=== PATIENT | female | born 1950 | race Two or more races ===

== ENCOUNTER 2025-05-09 22:15 | Inpatient (IN) | payer MEDICARE, OTHER ==
[~2025-05-09] VITALS: Ht 157.5 cm; Wt 71.7 kg
[2025-05-09] MEDS ORDERED: RIFA300C4 PO (22:59)
[2025-05-09] MEDS ORDERED: BISA10SU95 RC (22:59)
[2025-05-09] MEDS ORDERED: LOSA100T31 PO (22:59)
[2025-05-09] MEDS ORDERED: POLY250017 PO (22:59)
[2025-05-09] MEDS ORDERED: CALC500T88 PO (22:59)
[2025-05-09] MEDS ORDERED: LEVO75TA7 PO (22:59)
[2025-05-09] MEDS ORDERED: METF-440 PO (22:59)
[2025-05-09] MEDS ORDERED: CHOL200074 PO (22:59)
[2025-05-09] MEDS ORDERED: OLAN2.5T3 PO (22:59)
[2025-05-09] MEDS ORDERED: AMLO-212 PO (22:59)
[2025-05-09] MEDS ORDERED: FERR-56 PO (22:59)
[2025-05-09] MEDS ORDERED: SENN-129 PO (22:59)
[2025-05-09] MEDS ORDERED: DIVA125C5 PO (22:59)
[2025-05-09] MEDS ORDERED: BIMA2.5D5 EACHEYE (22:59)
[2025-05-09] MEDS ORDERED: ATOR20TA PO (22:59)
[2025-05-09 23:58] VITALS: BP 144/78
[2025-05-10] MEDS ORDERED: MAGNESIUM HYDROXIDE 30 ML LIQUID UDC PO PRN (01:45)
[2025-05-10] MEDS ORDERED: ZOLPIDEM 5 MG TABLET PO PRN (01:45)
[2025-05-10 08:19] VITALS: BP 150/63; TEMP 98.2; O2SAT 100
[2025-05-10] MEDS ORDERED: BISACODYL 10 MG SUPP.RECT RC PRN (11:45)
[2025-05-10 15:51] VITALS: BP 154/97; TEMP 98; O2SAT 96
[2025-05-10] MEDS: METFORMIN HCL 500 MG TABLET PO SCH (17:38)
[2025-05-10] MEDS: OLANZAPINE 2.5 MG TABLET PO SCH (17:39)
[2025-05-10] MEDS: LIDOCAINE 5% PATCH TD SCH (17:41)
[2025-05-10] MEDS: ACETAMINOPHEN 325 MG TABLET PO PRN (17:43)
[2025-05-10 20:06] VITALS: BP 148/72; TEMP 97.9; O2SAT 98
[2025-05-10] MEDS: DIVALPROEX SPRINKLE 125 MG CAP.SPRINK PO SCH (20:27)
[2025-05-10] MEDS: ATORVASTATIN 20 MG TABLET PO SCH (20:27)
[2025-05-10] MEDS: SENNOSIDES/DOCUSATE SODIUM TABLET PO SCH (20:27)
[2025-05-10] MEDS: LATANOPROST OPHT DROP 2.5 ML BOTTLE EACHEYE SCH (20:27)
[2025-05-10] MEDS: LORAZEPAM 1 MG TABLET PO PRN (20:33)
[2025-05-10] MEDS ORDERED: BIMATOPROST 0.01% OPHT DROP 2.5 ML BOTTLE EACHEYE SCH (21:00)
[2025-05-11] MEDS: LEVOTHYROXINE SODIUM 75 MCG TABLET PO SCH (06:01)
[2025-05-11 08:08] VITALS: BP 155/70; TEMP 97.8; O2SAT 98
[2025-05-11] MEDS: CHOLECALCIFEROL 1,000 UNIT TABLET PO SCH (08:37)
[2025-05-11] MEDS: LOSARTAN POTASSIUM 50 MG TABLET PO SCH (08:38)
[2025-05-11] MEDS: FERROUS SULFATE 325 MG TABEC PO SCH (08:39)
[2025-05-11] MEDS: AMLODIPINE 5 MG TABLET PO SCH (08:40)
[2025-05-11] MEDS: MIRALAX 17 GM POWD.PACK PO SCH (08:42)
[2025-05-11] MEDS: CALCIUM CARBONATE 500 MG TABLET PO SCH (08:43)
[2025-05-11] MEDS ORDERED: MIRALAX 17 GM POWD.PACK PO SCH (09:00)
[2025-05-11] MEDS ORDERED: OLANZAPINE 10 MG VIAL IM PRN (09:30)
[2025-05-11 15:16] VITALS: BP 110/53; TEMP 97.8; O2SAT 96
[2025-05-11 19:35] VITALS: BP 148/71; TEMP 97.9; O2SAT 97
[2025-05-11] MEDS: ZOLPIDEM 5 MG TABLET PO PRN (22:09)
[2025-05-12] MEDS: METHYL SALICYLATE/MENTHOL CREAM 28 GM TUBE TOP PRN (06:57)
[2025-05-12 08:23] VITALS: BP 154/82; TEMP 97.8; O2SAT 96
[2025-05-12 15:14] VITALS: BP 132/55; TEMP 98; O2SAT 99
[2025-05-12 19:57] VITALS: BP 150/62; TEMP 97.9; O2SAT 98
[2025-05-13 08:20] VITALS: BP 161/97; TEMP 98; O2SAT 99
[2025-05-13 16:33] VITALS: BP 146/86; TEMP 98; O2SAT 99
[2025-05-13 20:00] VITALS: BP 133/70; TEMP 98.3; O2SAT 96
[2025-05-14 08:18] VITALS: BP 151/58; TEMP 98; O2SAT 99
[2025-05-14] MEDS ORDERED: OLANZAPINE 2.5 MG TABLET PO SCH (09:00)
[2025-05-14] MEDS: OLANZAPINE 5 MG TABLET PO SCH (09:13)
[2025-05-14] MEDS: METOPROLOL TARTRATE 25 MG TABLET PO SCH (15:32)
[2025-05-14 16:23] VITALS: BP 127/61; TEMP 98; O2SAT 99
[2025-05-14 20:00] VITALS: BP 116/53; TEMP 98.2; O2SAT 95
[2025-05-15 08:15] LABS: PLATELET COUNT (AUTO) 238 K/uL (179-408); RED BLOOD CELL COUNT(AUTO) 3.64 MIL/uL (3.63-4.92); RED CELL DISTRIBUTION WIDTH 14.1 % (12.3-17.7); WHITE BLOOD COUNT (AUTO) 8.7 K/uL (3.8-11.8)
[2025-05-15 08:20] VITALS: BP 143/71; TEMP 98; O2SAT 99
[2025-05-15 08:33] LABS: ASPARTATE AMINOTRANSFERASE 8 U/L (15-37); TOTAL PROTEIN, SERUM 6.4 g/dL (6.4-8.2)
[2025-05-15] MEDS: RIFAMPIN 300 MG CAPSULE PO SCH (08:58)
[2025-05-15 16:55] VITALS: BP 144/61; TEMP 98; O2SAT 99
[2025-05-15 20:00] VITALS: BP 140/65; TEMP 97.7; O2SAT 97
[2025-05-16 08:00] VITALS: BP 177/77; TEMP 97.6; O2SAT 98
[2025-05-16] MEDS ORDERED: OLANZAPINE 5 MG TABLET PO SCH (09:00)
[2025-05-16] MEDS: DIVALPROEX SPRINKLE 125 MG CAP.SPRINK PO SCH (09:41)
[2025-05-16] MEDS: OLANZAPINE 2.5 MG TABLET PO SCH ×2 (09:41→21:03)
[2025-05-16 16:00] VITALS: BP 106/37; TEMP 98.2; O2SAT 95
[2025-05-16 20:24] VITALS: BP 116/64; TEMP 98.1; O2SAT 96
[2025-05-17 07:51] VITALS: BP 111/51; TEMP 98; O2SAT 99
[2025-05-17 15:15] VITALS: BP 121/70; TEMP 98.2; O2SAT 98
[2025-05-17 20:01] VITALS: BP 142/64; TEMP 98.1; O2SAT 98
[2025-05-17] MEDS: OLANZAPINE 5 MG TABLET PO SCH (20:21)
[2025-05-17] MEDS ORDERED: OLANZAPINE 2.5 MG TABLET PO SCH (21:00)
[2025-05-18 08:05] VITALS: BP 164/76; TEMP 98.2; O2SAT 98
[2025-05-18 15:20] VITALS: BP 151/68; TEMP 98; O2SAT 98
[2025-05-18 20:00] VITALS: BP 142/66; TEMP 98; O2SAT 97
[2025-05-19 07:51] VITALS: BP 134/50; TEMP 97.8; O2SAT 95
[2025-05-19 16:31] VITALS: BP 173/63; TEMP 98.4; O2SAT 96
[2025-05-19 19:53] VITALS: BP 120/51; TEMP 98.3; O2SAT 94
[2025-05-20] MEDS: RIFAMPIN 300 MG CAPSULE PO SCH (08:44)
[2025-05-20 09:22] VITALS: BP 158/68; TEMP 98.4; O2SAT 96
[2025-05-20 16:32] VITALS: BP 149/65; TEMP 98.3; O2SAT 94
[2025-05-20 19:57] VITALS: BP 146/66; TEMP 98.2; O2SAT 98
[2025-05-21] MEDS: MAG HYDROX/AL HYDROX/SIMETH 30 ML LIQUID UDC PO PRN (04:02)
[2025-05-21 08:08] VITALS: BP 182/58; TEMP 98.4; O2SAT 96
[2025-05-21 16:39] VITALS: BP 160/64; TEMP 98.3; O2SAT 94
[2025-05-21 19:51] VITALS: BP 128/53; TEMP 98.2; O2SAT 95
[2025-05-21] MEDS: ATORVASTATIN 10 MG TABLET PO SCH (20:20)
[2025-05-22 08:12] LABS: PLATELET COUNT (AUTO) 218 K/uL (179-408); RED BLOOD CELL COUNT(AUTO) 3.52 MIL/uL (3.63-4.92); RED CELL DISTRIBUTION WIDTH 13.7 % (12.3-17.7); WHITE BLOOD COUNT (AUTO) 8.2 K/uL (3.8-11.8)
[2025-05-22 08:55] VITALS: BP 133/67; TEMP 98.4; O2SAT 96
[2025-05-22 09:04] LABS: ASPARTATE AMINOTRANSFERASE 7 U/L (15-37); CREATININE 1.3 mg/dL (0.6-1.3); SODIUM SERUM 141 mmol/L (136-145); TOTAL PROTEIN, SERUM 5.9 g/dL (6.4-8.2); UREA NITROGEN, BLOOD 41 mg/dL (7-18)
[2025-05-22 16:50] VITALS: BP 169/58; TEMP 98.3; O2SAT 94
[2025-05-22 20:00] VITALS: BP 148/55; TEMP 98.5; O2SAT 94
[2025-05-23] MEDS: LEVOTHYROXINE SODIUM 75 MCG TABLET PO SCH (06:07)
[2025-05-23 16:00] VITALS: BP 140/86; TEMP 98.1; O2SAT 96
[2025-05-23 19:59] VITALS: BP 147/48; TEMP 98.6; O2SAT 94
[2025-05-24 07:59] VITALS: BP 166/91; TEMP 97.8; O2SAT 98
[2025-05-24 15:25] VITALS: BP 109/52; TEMP 89; O2SAT 100
== END 2025-05-24 17:17 | DRG 885 ==
LOC: ER 22:28 → GPS 22:30
PROVIDERS: ADMIT Psychiatry & Neurology Psychiatry
DX: F25.0 Schizoaffective disorder, bipolar type (principal); N18.30 Chronic kidney disease, stage 3 unspecified; N17.9 Acute kidney failure, unspecified; I12.9 Hypertensive chronic kidney disease with stage 1 through stage 4 chronic kidney disease, or unspecified chronic kidney disease; E11.22 Type 2 diabetes mellitus with diabetic chronic kidney disease; G25.81 Restless legs syndrome; E03.9 Hypothyroidism, unspecified; H40.9 Unspecified glaucoma; E78.5 Hyperlipidemia, unspecified; E66.9 Obesity, unspecified; Z68.28 Body mass index [BMI] 28.0-28.9, adult; Z79.890 Hormone replacement therapy; Z79.84 Long term (current) use of oral hypoglycemic drugs; Z88.8 Allergy status to other drugs, medicaments and biological substances; Z91.012 Allergy to eggs; Z91.011 Allergy to milk products
CPT/HCPCS: 36415; 80164; 83735; 84100; 84443; 85025; A4606; A4663